=== PATIENT | male | born 1970 | race Caucasian/White ===

== ENCOUNTER 2017-03-22 17:22 | Emergency (ER) | payer MEDICAID, OTHER ==
[~2017-03-22] VITALS: Ht 165.1 cm; Wt 90.0 kg
[2017-03-22 17:25] VITALS: Ht 165.1 cm; Wt 90.0 kg
[2017-03-22] MEDS ORDERED: LIDOCAINE 2% (MDV) 20 ML INJ INJ ONE (20:00)
[2017-03-22] MEDS ORDERED: SULF1TAB31 PO (21:28)
[2017-03-22] MEDS ORDERED: IBUP-1542 PO (21:29)
--- NOTE | 2017-03-22 21:33 | ERD ---
ER Documentation Chief Complaint Date/Time DATE: 03/22/17 TIME: 21:30 Chief Complaint right hand lac HPI This is a 46-year-old male that presents to the ER with his partner for a laceration to his right forearm. Patient states he was recycling with his partner when he cut himself with a metal. Bleeding was controlled before arriving to the ER. He denies any numbness or tingling in his extremity. He does admit to some throbbing pain. Pain is nonradiating. Patient got a tetanus shot recently. ROS 12 point review of systems was done, all negative except per HPI. Medications Home Meds Active Scripts Ibuprofen* (Motrin*) 600 Mg Tab, 600 MG PO Q6, #30 TAB Prov:REYES FINCH 03/22/17 Sulfamethoxazole/Trimethoprim* (Bactrim Ds* Tablet) 1 Each Tablet, 1 TAB PO BID , #14 TAB Prov:REYES FINCH 03/22/17 Allergies Allergies: Coded Allergies: Penicillins (Verified Allergy, Intermediate, swelling, 03/22/17) PMhx/Soc History of Surgery: Yes (MULTIPLE SURGERIES- SEE PROVIDER NOTE) Hx Alcohol Use: Yes Hx Substance Use: No Hx Tobacco Use: Yes Smoking Status: Current every day smoker Physical Exam Vitals Vital Signs Date Time Temp Pulse Resp B/P Pulse Ox O2 Delivery O2 Flow Rate FiO2 03/22/17 17:25 98.1 80 20 130/80 99 Physical Exam GENERAL: The patient is well developed and appropriate for usual state of health , in no apparent distress. HEENT: Atraumatic. CHEST: Clear to auscultation bilaterally. There are no rales, wheezes or rhonchi. HEART: Regular rate and rhythm. No murmurs, clicks, rubs or gallops. NEURO: Alert and oriented. SKIN: There is a 6 cm linear laceration to the right forearm. Results 24 hrs Current Medications Medications (Trade) Dose Ordered Sig/George Route PRN Reason Start Time Stop Time Status Last Admin Dose Admin Lidocaine (Xylocaine 2% (Mdv) 20 ml) 20 ml ONCE ONCE INJ 03/22/17 20:00 03/22/17 20:01 DC Procedures/MDM Laceration Repair by me: Anesthesia: 1% lidocaine locally Location: Right distal forearm Tendon/Joint/Nerves: No injury Foreign body: None detected after copious irrigation and exploration Technique: 14 Simple Interrupted Sutures Complexity: No subcutaneous sutures/mucosal repair/ edge excision Post Closure Length: 6 cm Patient's bleeding was easily controlled in the department and there is no indication of anemia. No evidence of compartment syndrome, neurologic injury, vascular injury, open joint, tendon laceration, or foreign body. Patient is appropriate for outpatient follow up. 48 hour wound check. Scar minimization instructions given. Patient will be sent home with Bactrim. And ibuprofen. Needs to follow-up with his primary care doctor within 1 to days return to ER sooner if symptoms worsen. My medical decision making shared with the patient he understands and agrees with Departure Diagnosis: Primary Impression: Laceration Condition: Stable Patient Instructions: Laceration, All Additional Instructions: Llame al doctor MAANA y tello garret ALEXANDER PARA DENTRO DE 1-2 MANCIA.Dgale a la secretaria que nosotros le instruimos hacer esta alexander.Avise o llame si frank condicin se empeora antes de la alexander. Regresa aqui si peor o no mejor. REYES FINCH Mar 22, 2017 21:33
== END 2017-03-22 21:39 | disposition home or self-care (01) ==
LOC: FTE 17:22
DX: S61.411A Laceration without foreign body of right hand, initial encounter (principal); F17.210 Nicotine dependence, cigarettes, uncomplicated; W26.8XXA Contact with other sharp object(s), not elsewhere classified, initial encounter; Y92.9 Unspecified place or not applicable
CPT/HCPCS: 12002; Z7610

== ENCOUNTER 2017-04-05 22:03 | Emergency (ER) | payer MEDICAID ==
[~2017-04-05] VITALS: Ht 170.2 cm; Wt 91.0 kg
[~2017-04-05 22:03] MED LIST: IBUP-1542 PO; SULF1TAB31 PO
[2017-04-05 22:11] VITALS: Ht 170.2 cm; Wt 91.0 kg
--- NOTE | 2017-04-05 22:34 | ERA ---
ER Documentation Chief Complaint Date/Time DATE: 04/05/17 TIME: 22:33 Chief Complaint suture remova; right arm HPI Patient is a 46-year-old male presenting for suture removal of his right wrist. Reports no complications and has been taking care of it by changing dressings and washing with soap and water. Patient denies fevers, any discharge, change in sensation, decreased range of motion or redness. ROS All systems reviewed and are negative except as per history of present illness. Medications Home Meds Active Scripts Ibuprofen* (Motrin*) 600 Mg Tab, 600 MG PO Q6, #30 TAB Prov:STEF,REYES C 03/22/17 Sulfamethoxazole/Trimethoprim* (Bactrim Ds* Tablet) 1 Each Tablet, 1 TAB PO BID , #14 TAB Prov:STEFREYES Crawford 03/22/17 Allergies Allergies: Coded Allergies: Penicillins (Verified Allergy, Intermediate, swelling, 03/22/17) PMhx/Soc History of Surgery: Yes (MULTIPLE SURGERIES- SEE PROVIDER NOTE) Hx Alcohol Use: Yes Hx Substance Use: No Hx Tobacco Use: Yes Physical Exam Vitals Vital Signs Date Time Temp Pulse Resp B/P Pulse Ox O2 Delivery O2 Flow Rate FiO2 04/05/17 22:11 97.8 79 20 144/85 98 Physical Exam Const: Overweight 46-year-old male presenting with his girlfriend. Head: Atraumatic Eyes: Normal Conjunctiva ENT: Normal External Ears, Nose and Mouth. Neck: Full range of motion..~ No meningismus. Resp: Clear to auscultation bilaterally Cardio: Regular rate and rhythm, no murmurs Abd: Soft, non tender, non distended. Normal bowel sounds Skin: No petechiae or rashes. No erythema or discharge around affected site. No induration. Back: No midline or flank tenderness Ext: No cyanosis, or edema. Neurovascularly intact bilaterally with radial pulses 2+ and capillary refill less than 2 seconds. Distal anterior right forearm has a horizontal laceration with 15 sutures placed. Neur: Awake and alert. Sensation equal in all distributions of upper extremities. Psych: Normal Mood and Affect Procedures/MDM 46-year-old male who is finished antibiotics and has had stitches in his right arm for 14 days. There is no signs of infection at this time. Patient will have the 15 sutures removed. Patient before removal of the stitches was neurovascularly intact bilaterally. 15 sutures were removed from the right anterior forearm. No complications occurred. Steri-Strips were applied after removal. After suture removal the patient remains neurovascularly intact bilaterally with no complications during suture removal. Patient is feeling well with no change in symptoms. Will be discharged at this time with discharge instructions and return precautions. Patient is right-handed but is not currently employed. Departure Diagnosis: Primary Impression: Encounter for removal of sutures Condition: Stable Additional Instructions: Follow up with your PCP within the next 1-3 days for a more thorough evaluation and a possible referral to a specialist. Return the the emergency department immediately if symptoms worsen or change. If you have any questions regarding medications, ask your pharmacist or us before you leave. If any adverse reactions occur while taking your medications, discontinue the treatment and return to the emergency department immediately. Take your medications as directed, and complete the entire course of treatment. DYLAN MARTINEZ PA-C April 05, 2017 22:34
== END 2017-04-05 23:00 | disposition home or self-care (01) ==
LOC: FTE 22:03
DX: Z48.02 Encounter for removal of sutures (principal)
CPT/HCPCS: 99281